=== PATIENT | male | born 1995 | race American Indian/Alaskan Native ===

== ENCOUNTER 2017-03-18 17:40 | Emergency (ER) | payer OTHER ==
[2017-03-18 18:19] LABS: Basophils % (Auto) 0.9 % (0.0-1.8); Eosinophils % (Auto) 3.4 % (0.0-4.3); Hematocrit 42.8 % (35.5-45.6); Hemoglobin 14.4 gm/dl (11.8-15.2); Mean Corpuscular HGB Conc 34 % (32-34); Mean Corpuscular Hemoglobin 29 pg (28-32); Mean Corpuscular Volume 86 fl (84-94); Platelet Count 201 K/mm3 (140-440); Red Blood Count 4.96 M/mm3 (3.65-5.03); Red Cell Distribution Width 14.2 % (13.2-15.2); White Blood Count 3.6 K/mm3 (4.5-11.0)
[2017-03-18 18:38] LABS: Anion Gap 16 mmol/L; BUN/Creatinine Ratio 16; Blood Urea Nitrogen 16 mg/dL (9-20); Calcium 9.6 mg/dL (8.4-10.2); Carbon Dioxide 30 mmol/L (22-30); Chloride 96.9 mmol/L (98-107); Glucose 99 mg/dL (75-100); Potassium 4.2 mmol/L (3.6-5.0); Sodium 139 mmol/L (137-145)
--- NOTE | 2017-03-18 20:21 | Emergency Department Report ---
ED Chest Pain HPI - General Chief Complaint: Chest Pain Stated Complaint: FATIGUE/CHEST PAIN Time Seen by Provider: 03/18/17 19:39 Source: patient Mode of arrival: Ambulatory Limitations: No Limitations - History of Present Illness Initial Comments: This is a 21 year-old male presents to the emergency department with complaint of a one-week history of fatigue, lightheadedness, indigestion and some intermittent chest pains that keep going back and forth from left to right. Currently he denies any chest pain. He never has any shortness of breath, nausea, vomiting or fever. He has not taken anything for her symptoms prior presentation. Eating does not appear to affect his discomfort. He denies any tobacco or illicit drug use or abuse. He drove himself and be seen today. No recent travel or sick contacts at home. He does not have a primary care physician. Severity scale (0 -10): 0 - Related Data Home Medications Medication Instructions Recorded Confirmed Last Taken No Known Home Medications [No 05/23/15 05/23/15 Unknown Reported Home Medications] Allergies Allergy/AdvReac Type Severity Reaction Status Date / Time No Known Allergies Allergy Unverified 05/23/15 18:49 Heart Score - HEART Score History: Slightly suspicious EKG: Normal Age: < 45 Risk factors: No known risk factors Troponin: < normal limit HEART Score: 0 - Critical Actions Critical Actions: 0-3 pts:0.9-1.7%risk of adverse cardiac event.Candidate for discharge ED Review of Systems ROS: Stated complaint: FATIGUE/CHEST PAIN Other details as noted in HPI Comment: All other systems reviewed and negative Constitutional: other (fatigue). denies: chills, fever Eyes: denies: eye pain, eye discharge, vision change ENT: denies: ear pain, throat pain Respiratory: denies: cough, shortness of breath, wheezing Cardiovascular: chest pain (intermittent). denies: palpitations Gastrointestinal: denies: abdominal pain, nausea, diarrhea Genitourinary: denies: urgency, dysuria Musculoskeletal: denies: back pain, joint swelling, arthralgia Skin: denies: rash, lesions Neurological: other (lightheaded). denies: headache ED Past Medical Hx - Past Medical History Previous Medical History?: No - Surgical History Past Surgical History?: No - Social History Smoking Status: Never Smoker Substance Use Type: None - Medications Home Medications: Home Medications Medication Instructions Recorded Confirmed Last Taken Type No Known Home Medications [No 05/23/15 05/23/15 Unknown History Reported Home Medications] ED Physical Exam - General Limitations: No Limitations - Other Other exam information: GENERAL: The patient is well-developed well-nourished. HENT: Normocephalic. Atraumatic. Patient has moist mucous membranes. EYES: Extraocular motions are intact. Pupils equal reactive to light bilaterally. NECK: Supple. Trachea is midline. CHEST/LUNGS: Clear to auscultation. There is no respiratory distress noted. HEART/CARDIOVASCULAR: Regular. There is no tachycardia. There is no murmur. ABDOMEN: Abdomen is soft, nontender. Patient has normal bowel sounds. There is no abdominal distention. SKIN: Skin is warm and dry. NEURO: The patient is awake, alert, and oriented. The patient is cooperative. The patient has no focal neurologic deficits. The patient has normal speech. MUSCULOSKELETAL: There is no tenderness or deformity. There is no limitation range of motion. There is no evidence of acute injury. ED Course Vital Signs 03/18/17 03/18/17 03/18/17 17:55 19:45 19:46 Temperature 98.7 F Pulse Rate 65 67 Respiratory 18 12 15 Rate Blood Pressure 127/77 125/74 Blood Pressure [Left] O2 Sat by Pulse 100 100 100 Oximetry 03/18/17 03/18/17 03/18/17 19:50 20:00 20:30 Temperature 98.2 F Pulse Rate 55 L 55 L 57 L Respiratory 16 16 20 Rate Blood Pressure 116/68 125/74 Blood Pressure 125/74 [Left] O2 Sat by Pulse 100 100 100 Oximetry 03/18/17 03/18/17 21:00 21:30 Temperature Pulse Rate 58 L 58 L Respiratory 14 22 Rate Blood Pressure 121/65 121/65 Blood Pressure [Left] O2 Sat by Pulse 99 100 Oximetry BAUDILIO score - Baudilio Score Age > 65: (0) No Aspirin use within the Past 7 Days: (0) No 3 or more CAD Risk Factors: (0) No 2 or more Angina events in past 24 hrs: (0) No Known CAD with more than 50% Stenosis: (0) No Elevated Cardiac Markers: (0) No ST Deviation Greater than 0.5mm: (0) No BAUDILIO Score: 0 ED Medical Decision Making - Lab Data Result diagrams: 03/18/17 18:07 03/18/17 18:06 - EKG Data -: EKG Interpreted by Me EKG shows normal: sinus rhythm, axis, intervals, QRS complexes (LVH), ST-T waves (mild early repolarization) Rate: normal - EKG Data When compared to previous EKG there are: previous EKG unavailable Interpretation: LVH - Radiology Data Radiology results: image reviewed interpreted by me: Chest x-ray does not show any acute process. There are no pleural effusions, obvious pneumonia and there is no pneumothorax. - Medical Decision Making 21-year-old male presents to the emergency department with some fatigue, nonspecific lightheadedness and some intermittent chest pains. Patient says he is currently asymptomatic. EKG does not show any signs of ST elevation OH, ischemia or dysrhythmia. Labs been unremarkable so far including negative troponins 2 and a normal thyroid function. Chest x-ray does not show any pneumonia, pneumothorax or any acute process. Vital signs stable throughout his ED course. He was reevaluated multiple times for multiple hours and has been resting comfortably. From these reasons patient appears safe for discharge home at this time. He was given referrals for primary care and cardiology and encouraged to return to the emergency Department with any worsening of symptoms or any acute distress. - Differential Diagnosis thyroid dysfunction, OH, costochondritis, GERD, pneumonia Critical Care Time: No Critical care attestation.: If time is entered above; I have spent that time in minutes in the direct care of this critically ill patient, excluding procedure time. ED Disposition Clinical Impression: Intermittent chest pain, Lightheaded Fatigue Qualifiers: Fatigue type: unspecified Qualified Code(s): R53.83 - Other fatigue Disposition: DC-01 TO HOME OR SELFCARE Is pt being admited?: No Condition: Stable Instructions: Chest Pain (ED), Lightheadedness (ED), Fatigue (ED) Additional Instructions: Please follow up with a primary care physician in the next few days. Return to the emergency Department with any worsening of your symptoms or any acute distress. I have given you a referral for a local insurance healthcare representative, Dr. Guidry, to follow up regarding your intermittent chest pains. Referrals: PRIMARY TIA, [Primary Care Provider] - 3-5 Days JESSIKA SCHWARTZ JR, MD [Staff Physician] - 3-5 Days MARGARETTE GUIDRY MD [Staff Physician] - 3-5 Days [facility] [Outside] - 3-5 Days Time of Disposition: 21:42
--- NOTE | 2017-03-18 21:43 | XRay Report ---
FINAL REPORT EXAM: XR CHEST ROUTINE 2V HISTORY: CP COMPARISON: None available. FINDINGS:: Frontal and lateral views of the chest obtained. Cardiac silhouette is within normal limits. No focal consolidation or effusion. No pneumothorax. Visualized bony thorax is grossly intact. IMPRESSION:: No acute findings.
[2017-03-18 21:56] VITALS: BP 121/65
== END 2017-03-18 22:01 | disposition home or self-care (01) ==
LOC: ED 17:40
DX: R07.89 Other chest pain (principal); R53.83 Other fatigue; R42 Dizziness and giddiness
CPT/HCPCS: 36415; 71020; 80048; 84443; 84484; 85025; 93005; 93010; 99284